=== PATIENT | female | born 1975 | race Caucasian/White ===

== ENCOUNTER 2018-06-27 06:31 | Emergency (ER) | payer BC ==
[2018-06-27] MEDS: HYDROCODONE/APAP (5/325) TAB PO (07:17)
== END 2018-06-27 07:45 | disposition home or self-care (01) ==
LOC: FTE 06:31
DX: S89.91XD Unspecified injury of right lower leg, subsequent encounter (principal); W18.39XD Other fall on same level, subsequent encounter; Y92.9 Unspecified place or not applicable
CPT/HCPCS: 29505; 99283-25